=== PATIENT | female | born 1985 | race Caucasian/White ===

== ENCOUNTER 2017-11-04 21:46 | Emergency (ER) | payer SELFPAY, MEDICAID ==
[2017-11-05 00:47] LABS: BASO # 0.1 10^3/uL (0.0-0.2); BASO % 0.5 % (0.0-1.0); EOS # 0.3 10^3/uL (0.0-0.50); EOS % 2.7 % (0.0-3.0); HEMATOCRIT 40.9 % (36.0-47.0); HEMOGLOBIN 12.5 g/dl (12.0-15.5); IMMATURE GRANULOCYTE % 0.3 % (0-3.0); LYMPH # 3.1 10^3/uL (1.5-4.5); LYMPH % 28.4 % (24.0-44.0); MEAN CORPUSCULAR HEMOGLOBIN 24.6 pg (27.0-33.0); MEAN CORPUSCULAR HGB CONC 30.6 g/dl (32.0-36.5); MEAN CORPUSCULAR VOLUME 80.4 fl (80.0-96.0); MONO # 0.6 10^3/uL (0.0-0.8); MONO % 5.8 % (0.0-5.0); NEUTROPHILS # 6.9 10^3/uL (1.8-7.7); NEUTROPHILS % 62.3 % (36.0-66.0); PLATELET COUNT, AUTOMATED 374 10^3/uL (150-450); RED BLOOD COUNT 5.09 10^6/uL (4.00-5.40)
[2017-11-05 01:07] LABS: ANION GAP 6 MEQ/L (8-16); BLOOD UREA NITROGEN 14 MG/DL (7-18); C REACTIVE PROTEIN QUANTITATIV 1.18 MG/DL (0.00-0.30); CARBON DIOXIDE LEVEL 24 MEQ/L (21-32); CHLORIDE LEVEL 110 MEQ/L (98-107); CREATININE FOR GFR 0.77 MG/DL (0.55-1.30); GLOMERULAR FILTRATION RATE > 60.0 (>60); GLUCOSE, FASTING 86 MG/DL (70-100); POTASSIUM SERUM 4.1 MEQ/L (3.5-5.1); SODIUM LEVEL 140 MEQ/L (136-145)
[2017-11-05 01:12] LABS: ERYTHROCYTE SEDIMENTATION RATE 32 mm/hr (0-20)
[2017-11-05] MEDS: CLINDAMYCIN 900 MG in APPROPRIATE DILUENT 1 EA IV (01:14)
[2017-11-05] MEDS: KETOROLAC TROMETHAMINE 10 MG TAB PO (02:00)
== END 2017-11-05 02:05 | disposition home or self-care (01) ==
LOC: M ED 11-05 02:05
DX: L03.115 Cellulitis of right lower limb (principal); E66.9 Obesity, unspecified; F17.200 Nicotine dependence, unspecified, uncomplicated; Z87.81 Personal history of (healed) traumatic fracture; Z98.890 Other specified postprocedural states; Z96.9 Presence of functional implant, unspecified; Z88.8 Allergy status to other drugs, medicaments and biological substances; Z88.5 Allergy status to narcotic agent
CPT/HCPCS: 73700

== ENCOUNTER → 2018-10-15 | Outpatient (CLI) | payer OTHER ==
[~2018-10-15] MED LIST: BACL10TA2 PO; CLEO300C2 PO; CYCL10TA; DICL25TA PO; HYDR-3713 PO; MIRA3350 PO; MOBI15TA PO; PERCOCET PO; ROBA750T4 PO; TRIA37.53 PO; ZANA4CAP PO; [UNRECOGNIZED DRUG - REMARK] PO; zanaflex PO
--- NOTE | 2018-10-15 17:51 | REP ---
Digital diagnostic bilateral mammography with CAD, 3-D tomography, and focused left breast sonography: History: Left breast lump superiorly and medially. No comparison breast imaging. Findings: A skin marker is affixed to the skin at the site of the palpable lump and routine views of the left breast are augmented by magnified focal spot compression views. Bilateral 3-D tomography was carried out. The breast parenchyma is almost completely fat replaced. In the area of the palpable lump in the superior and medial quadrant of the left breast, there are two tight groupings of polymorphic calcifications close to one another. Just anterior to these two is a fat density rounded lesion with thin lay consistent with a area of fat necrosis or oil cyst. This measures 6 mm in diameter. The largest grouping of calcifications measures 7 mm in greatest diameter. A smaller grouping of calcifications appear dystrophic and coarse and benign. This measures 3 mm in greatest diameter. No other mammographic abnormality is seen. There is a cutaneous mole superiorly and laterally on the left breast. The right breast is unremarkable. It contains a few benign calcifications. Sonographic findings: The left breast was examined sonographically sitting and supine. At the site of the palpable lump there is an 8 x 8 x 4 mm irregular area containing shadowing calcifications which is felt to correspond with the larger calcification pattern. This casts posterior acoustic shadowing. There is a similar area of posterior shadowing nearby 2 mm in greatest diameter. Inferior to the palpable lump, there is a 6 mm rounded hypoechoic area with acoustic shadowing 10 cm from the nipple which is felt to correspond with a benign fat-containing cyst seen anterior to the calcifications in the left breast mammographically. This is felt to be a benign mammographic finding containing fat. Impression: There is a tight grouping of somewhat coarse but polymorphic calcifications in the left breast at the site of the palpable lump. This may be benign fat necrosis but in the absence of prior imaging and given its appearance, BIRADS category is felt to be best assigned as category 4 suspicious left breast imaging. Stereotactic needle biopsy of this larger group of calcifications is recommended. BIRADS 4: BI-RADS/ACR category 4 mammogram. Suspicious Abnormality - biopsy should be considered. This mammogram was interpreted with the aid of an FDA-approved computer-aided detection system. The patient states she had a clinical breast exam in September 2018. The patient letter being requested is m# [id number] . Electronically Signed by Santos Snider MD 10/15/2018 08:31 P
== END ==
LOC: M RAD 13:58
PROVIDERS: ATTEND Family Medicine
DX: Z12.31 Encounter for screening mammogram for malignant neoplasm of breast (principal); N63.20 Unspecified lump in the left breast, unspecified quadrant
CPT/HCPCS: 76642; 77066; G0279

== ENCOUNTER 2020-05-15 20:00 | Inpatient (IN) | payer OTHER ==
[~2020-05-15] VITALS: Ht 167.6 cm; Wt 46.6 kg
[~2020-05-15 20:00] MED LIST changes: +CYCL-707; -CYCL10TA
[2020-05-15] MEDS ORDERED: EPINEPHrine INJ 1 MG/ML 1ML AMP ONE (20:02)
[2020-05-15] MEDS ORDERED: MORPHINE 4 MG/ML 1ML VIAL/SYRINGE (J2270) IV ONE (20:30)
[2020-05-15] MEDS ORDERED: AMPICILLIN SOD/SULBACTAM SOD 3 GM in D5W MINI-BAG PLUS 100 ML IV ONE (20:30)
[2020-05-15] MEDS ORDERED: BOOSTRIX/ADACEL VACCINE (DIPHTH/PERTUSS/ACELL/TETANUS) 0.5ML SYR IM ONE (20:30)
[2020-05-15 21:02] LABS: BASO % 0.3 % (0.0-1.0); EOS # 0.3 10^3/uL (0.0-0.5); EOS % 2.4 % (0.0-3.0); HEMATOCRIT 41.5 % (36.0-47.0); HEMOGLOBIN 12.7 g/dl (12.0-15.5); LYMPH # 2.2 10^3/uL (1.5-5.0); LYMPH % 20.5 % (24.0-44.0); MEAN CORPUSCULAR HEMOGLOBIN 25.8 pg (27.0-33.0); MEAN CORPUSCULAR HGB CONC 30.6 g/dl (32.0-36.5); MEAN CORPUSCULAR VOLUME 84.2 fl (80.0-96.0); MONO # 0.6 10^3/uL (0.0-0.8); MONO % 5.2 % (0.0-5.0); NEUTROPHILS # 7.8 10^3/uL (1.5-8.5); NEUTROPHILS % 71.2 % (36.0-66.0); PLATELET COUNT, AUTOMATED 420 10^3/uL (150-450); RED BLOOD COUNT 4.93 10^6/uL (4.00-5.40); WHITE BLOOD COUNT 10.9 10^3/uL (4.0-10.0)
[2020-05-15 21:16] LABS: INR 0.96; PARTIAL THROMBOPLASTIN TIME 24.7 SECONDS (24.2-38.5)
--- NOTE | 2020-05-15 21:42 | REPVR ---
PROCEDURE INFORMATION: Exam: XR Left Forearm Exam date and time: 05/15/2020 9:31 PM Age: 35 years old Clinical indication: Pain; Lower or forearm; Left; Additional info: Dog bite TECHNIQUE: Imaging protocol: XR Left forearm. Views: 2 views. COMPARISON: CR Elbow, complete 11/18/2013 10:26 AM FINDINGS: Bones/joints: Bones are aligned normally. No fracture, bone lesion or osteochondral abnormality. Joint spaces of the elbow and wrist are maintained. Soft tissues: Diffuse soft tissue swelling and soft tissue air consistent with laceration which correlates with the patient's history. No opaque foreign body. IMPRESSION: 1. Soft tissue lacerations and soft tissue swelling of the mid forearm without underlying radiopaque foreign body 2. No fracture or other osseous abnormality. Electronically signed by: Hiram Pack On 05/15/2020 21:42:30 PM
--- NOTE | 2020-05-15 21:44 | REPVR ---
PROCEDURE INFORMATION: Exam: XR Left Elbow Exam date and time: 05/15/2020 9:31 PM Age: 35 years old Clinical indication: Pain; Lower or forearm; Left; Additional info: Dog bite TECHNIQUE: Imaging protocol: XR Left elbow. Views: 3 or more views. COMPARISON: CR Elbow, complete 11/18/2013 10:26 AM FINDINGS: Bones/joints : Lateral view shows no displacement of periarticular fat pads to indicate joint effusion. Bones are aligned normally. No fracture, bone lesion or osteochondral abnormality. Joint spaces of the elbow are well-maintained. Soft tissues: Soft tissue laceration of the proximal and mid forearm without involvement of the elbow joint. IMPRESSION: Normal radiographic series of the elbow. Proximal-mid forearm soft tissue injuries were discussed in the forearm radiograph report Electronically signed by: Hiram Pack On 05/15/2020 21:44:26 PM
--- NOTE | 2020-05-15 21:46 | REPVR ---
PROCEDURE INFORMATION: Exam: XR Left Wrist Exam date and time: 05/15/2020 9:31 PM Age: 35 years old Clinical indication: Pain; Wrist; Left; Additional info: Dog bite TECHNIQUE: Imaging protocol: XR Left wrist. Views: 3 or more views. COMPARISON: No relevant prior studies available. FINDINGS: Bones/joints: No acute fracture. Carpal bones align normally. No bone lesion. Scaphoid appears intact. Joint spaces are well-maintained for age. Soft tissues: Soft tissue swelling and soft tissue air over the distal forearm consistent with the history of dog bite. No retained foreign body. IMPRESSION: 1. Mid and distal forearm soft tissue injury with soft tissue air but no identifiable foreign body. 2. No osseous injury or malalignment. Electronically signed by: Hiram Pack On 05/15/2020 21:45:44 PM
[2020-05-15] MEDS ORDERED: D5W/0.45% SODIUM CHLORIDE 1,000 ML IV SCH (22:20)
[2020-05-15] MEDS ORDERED: GLUCOSE 4GM CHEW TABLET PO PRN (22:45)
[2020-05-15] MEDS ORDERED: GLUCAGON INJ 1MG VIAL SC PRN (22:45)
[2020-05-15] MEDS ORDERED: MORPHINE 4 MG/ML 1ML VIAL/SYRINGE (J2270) IV PRN (22:45)
[2020-05-15] MEDS ORDERED: DEXTROSE 50% 50 ML SYRINGE IV PRN (22:45)
[2020-05-15] MEDS ORDERED: RABIES VACCINE HUMAN 2.5 INTERNATIONAL UNITS/ML VIAL (90675) IM ONE (23:00)
[2020-05-15] MEDS ORDERED: RABIES IMMUNE GLOBULIN 1500 INTERNATIONAL UNIT/5ML VIAL (90375) IM ONE (23:00)
[2020-05-15] MEDS ORDERED: NICOTINE 14 MG/24 HR TRANSDERMAL TD ONE (23:00)
[2020-05-15] MEDS ORDERED: LEVALBUTEROL 1.25 MG/0.5 ML CONCENTRATE NEB INH PRN (23:00)
[2020-05-15] MEDS ORDERED: ceFAZolin 2 GM/D5W 50 ML IV BAG (J0690 PER 500MG) As Ordered ONE (23:03)
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
[2020-05-15 23:48] LABS: ERYTHROCYTE SEDIMENTATION RATE 38 mm/hr (0-20)
[2020-05-15] MEDS ORDERED: fentaNYL 100 MCG/2 ML INJECTION (J3010) As Ordered ONE (23:50)
[2020-05-15] MEDS ORDERED: MIDAZOLAM INJ 2MG/2ML VIAL (J2250 PER 1MG) As Ordered ONE (23:50)
[2020-05-16] MEDS ORDERED: LIDOCAINE 2% 100MG/5ML SDV (FOR ANES.) As Ordered ONE (00:05)
[2020-05-16] MEDS ORDERED: propofoL 500 MG/50 ML VIAL As Ordered ONE ×2 (00:05→00:57)
[2020-05-16] MEDS ORDERED: propofoL 200 MG/20 ML VIAL As Ordered ONE (00:05)
[2020-05-16] MEDS ORDERED: CHLOROPROCAINE PRES. FREE 2% 20ML VIAL As Ordered ONE (00:29)
[2020-05-16] MEDS ORDERED: fentaNYL 100 MCG/2 ML INJECTION (J3010) IV ONE ×2 (00:45)
[2020-05-16] MEDS ORDERED: MIDAZOLAM INJ 2MG/2ML VIAL (J2250 PER 1MG) IV ONE ×2 (00:45)
[2020-05-16] MEDS ORDERED: oxyCODONE 5MG TAB PO PRN (01:30)
[2020-05-16] MEDS ORDERED: METOCLOPRAMIDE INJ 10MG/2ML VIAL (J2765 PER 1) IV PRN (01:30)
[2020-05-16] MEDS ORDERED: LR 1,000 ML IV SCH ×2 (01:30→03:00)
[2020-05-16] MEDS ORDERED: MEPERIDINE INJ 25 MG/ML VIAL (J2175) IV PRN (01:30)
[2020-05-16] MEDS ORDERED: fentaNYL 100 MCG/2 ML INJECTION (J3010) IV PRN (01:30)
[2020-05-16] MEDS ORDERED: ONDANSETRON 4MG/2ML VIAL IV PRN ×2 (01:30→03:00)
[2020-05-16] MEDS ORDERED: PROMETHAZINE INJ 25 MG/ML VIAL (J2550) IV PRN (03:00)
[2020-05-16] MEDS ORDERED: traMADol 50 MG TAB PO PRN (03:00)
[2020-05-16] MEDS ORDERED: MORPHINE 4 MG/ML 1ML VIAL/SYRINGE (J2270) IV PRN (03:00)
[2020-05-16] MEDS ORDERED: MORPHINE 2 MG/ML 1ML VIAL (J2270) IV PRN (03:00)
[2020-05-16] MEDS ORDERED: ACETAMINOPHEN TAB 650MG DOSE (2X325MG) PO PRN (03:00)
[2020-05-16] MEDS: PERCOCET 5MG/325MG TAB PO PRN ×3 (04:10→18:22)
[2020-05-16] MEDS: AMPICILLIN SOD/SULBACTAM SOD 3 GM in D5W MINI-BAG PLUS 100 ML IV SCH ×4 (04:18→20:34)
[2020-05-16 07:12] LABS: BASO # 0.1 10^3/uL (0.0-0.2); BASO % 0.4 % (0.0-1.0); EOS % 0.3 % (0.0-3.0); HEMOGLOBIN 11.1 g/dl (12.0-15.5); LYMPH # 0.9 10^3/uL (1.5-5.0); LYMPH % 7.4 % (24.0-44.0); MEAN CORPUSCULAR HEMOGLOBIN 25.9 pg (27.0-33.0); MEAN CORPUSCULAR HGB CONC 30.8 g/dl (32.0-36.5); MEAN CORPUSCULAR VOLUME 84.1 fl (80.0-96.0); MONO # 0.7 10^3/uL (0.0-0.8); MONO % 5.7 % (0.0-5.0); NEUTROPHILS # 10.2 10^3/uL (1.5-8.5); NEUTROPHILS % 85.9 % (36.0-66.0); PLATELET COUNT, AUTOMATED 337 10^3/uL (150-450); RED BLOOD COUNT 4.28 10^6/uL (4.00-5.40); WHITE BLOOD COUNT 11.8 10^3/uL (4.0-10.0)
[2020-05-16 07:43] LABS: CHOLESTEROL RISK RATIO 3.116 (<5); THYROID STIMULATING HORMONE 0.874 uIU/ML (0.358-3.740); THYROXINE (T4) 9.2 UG/DL (4.5-12.0)
[2020-05-16 07:44] LABS: BLOOD UREA NITROGEN 8 MG/DL (7-18); C REACTIVE PROTEIN QUANTITATIV 1.72 MG/DL (0.00-0.30); CALCIUM LEVEL 8.2 MG/DL (8.5-10.1); CARBON DIOXIDE LEVEL 24 MEQ/L (21-32); CHLORIDE LEVEL 110 MEQ/L (98-107); CREATININE FOR GFR 0.78 MG/DL (0.55-1.30); GLOMERULAR FILTRATION RATE > 60.0 (>60); GLUCOSE, FASTING 102 MG/DL (70-100); POTASSIUM SERUM 3.8 MEQ/L (3.5-5.1); SODIUM LEVEL 141 MEQ/L (136-145)
[2020-05-16 07:59] LABS: ERYTHROCYTE SEDIMENTATION RATE 43 mm/hr (0-20)
[2020-05-16] MEDS: NICOTINE 14 MG/24 HR TRANSDERMAL TD SCH (08:07)
[2020-05-16] MEDS ORDERED: ceFAZolin SOD 2 GM in IV 1 EA IV SCH (09:00)
[2020-05-16 09:14] LABS: HEMOGLOBIN A1c 5.4 %
[2020-05-16 10:00] VITALS: BP 142/79
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
--- NOTE | 2020-05-16 13:34 | RO ---
DATE OF OPERATION: 05/16/2020 SURGEON: Arash Weiner MD CUSTOMER COMPLAINT CLERK: None. SUPERVISING ATTENDING: Arash Weiner MD PREOPERATIVE DIAGNOSIS: Left forearm dog bite with approximately 5 x 7 cm skin loss. POSTOPERATIVE DIAGNOSIS: Left forearm dog bite with approximately 5 x 7 cm skin loss. NAME OF OPERATION: Left forearm irrigation and debridement of skin loss and dog bite and internal degloving of the dorsal 5 x 7 cm lesion as well as two 3 cm lesions on the proximal ulnar aspect of the left forearm. FINDINGS: The patient had mild internal degloving with the aforementioned 5 x 7 cm dorsal left forearm skin lesion as well as two 3 cm proximal and ulnar dog bites. INDICATIONS: This is a 35-year-old female who was out enjoying her evening when a stray dog latched onto her left forearm. This patient had past medical history of obesity, possible hypertension, 25 year pack history of smoking, depression and right tibial osteomyelitis. The patient otherwise was healthy. After the dog bit her left forearm the patient was seen in the [facility] Emergency Department for further evaluation and treatment regarding her left forearm. Given the fact that she had internal degloving injury as well as large 5 x 7 cm skin defect on the dorsal aspect of her left forearm she is indicated for left forearm irrigation and debridement of the aforementioned injuries. ANESTHESIA: Local, MAC. INTRAOPERATIVE ANTIBIOTICS: 2 gm Ancef. TOURNIQUET TIME: None used. IMPLANTS: None. ESTIMATED BLOOD LOSS: 20 mL. CULTURES: None. SPECIMEN: None. PROCEDURE IN DETAIL: The patient was met in the preoperative holding area where the patients left upper extremity was signed. The patients consent was confirmed to be correct; patients identity was confirmed to be correct. She was transported to the operating theater where she was placed supine on regular surgical flat top bed. The left upper extremity was placed onto arm table; safety strap secured the patient to the bed. The lower extremities had SCDs placed. All bony prominences were well padded. Time out was called to confirm correct patient, correct operative extremity and correct consent. All staff was in agreement. The patient was draped in the usual sterile fashion exposing the left upper extremity. We began the procedure by debriding the necrotic edges of the dorsal laceration after debridement of the skin edges and debridement of the soft tissues including the fascia of the extensor tendons, likely the ECRB and extensor digitorum communis and any necrotic looking fat. We then began our copious irrigation using 9 liters of normal saline after copiously irrigating the dorsal 5 x 7 cm lesion. We then turned our attention to the proximal ulnar- sided lesions. There were two lesions measuring approximately 3 cm with internal degloving of the adipose layer from the fascia. I was not able to palpate bone; however, I was able to insert my finger approximately 3 inches into the distal aspect of the ulnar proximal lacerations. These were also thoroughly irrigated using 9 liters normal saline. Once we copiously irrigated both the dorsal larger skin lesion and the two proximal ulnar smaller skin lesions we then used 3-0 Vicryl to loosely approximate the edges of the aforementioned lesions. We covered the dorsal lesion which measured 5 x 7 after debridement of the skin tissue edges with white sponge and covered the two proximal ulnar incisions using black sponge. These were then hooked up to negative pressure wound dressing at 125 mmHg and connected to negative pressure wound therapy machine. We then covered this with an Srini bandage. The patient was awakened without complication and transported to postanesthesia care unit. The patient will be under the care of internal medicine team to manage her medical comorbidities. At this point in time we will continue the negative pressure wound therapy for three days. At that point in time we will return her for repeat irrigation and debridement. However, we will likely consult plastic surgery for split-thickness skin graft on the dorsal aspect of her left forearm. If this is the case then plastic surgery will perform the secondary procedure likely involving irrigation and debridement, possible split-thickness skin graft to the dorsal aspect if the tissues appear viable without any additional necrosis of the skin edges. The patient will receive her postoperative pain medication and antibiotics per the internal medicine recommendations. We will continue to follow this patient. LACY
--- NOTE | 2020-05-16 13:56 | CR ---
PREOPERATIVE DIAGNOSIS: Left forearm dog bite with skin loss on the dorsal aspect. HISTORY OF PRESENT ILLNESS: This is a 35-year-old female who was walking behind her home and a stray dog attacked her and bit the dorsal aspect of her left arm, as well as the ulnar aspect of her proximal forearm. She appeared to have a 3 x 3 cm skin deficit over the dorsal aspect of her forearm with exposed extensor muscle belly appreciated. She presented to the [facility] for further evaluation and treatment. On arrival, she received IV antibiotics and received a tetanus booster. The dog was a stray and the Public Health Department has been contacted. She will likely receive anti-rabies vaccination; however, this is still pending. The patient was evaluated by orthopedic surgery with the physical exam findings as described below. She was indicated for irrigation and debridement with negative pressure wound therapy dressing with probable split- thickness skin graft placement in a future suture. PAST MEDICAL HISTORY: * Obesity with a 46.2 BMI. * High glucose with possible prediabetes. * Patient did arrive with a blood pressure of 162/90 with questionable chronic hypertension. * Patient does have a 25-pack year smoking history. * Depression. * Right tibial osteomyelitis of which she has not received treatment in several years. PAST SURGICAL HISTORY: Self-reported bilateral oophorectomy. ALLERGIES: Patient denies. SOCIAL HISTORY: Patient denies alcohol or drug use. FAMILY HISTORY: Significant for cardiovascular disease and stroke history. MEDICATIONS: Patient has a previous history of Effexor SSRI medication use; however, she denies any current medications. PHYSICAL EXAMINATION: GENERAL: Patient was alert to person, time, and place. CARDIAC: Regular rate and rhythm. LUNGS: Clear to auscultation bilaterally. Equally rising chest bilaterally. MUSCULOSKELETAL: Patients left upper extremity had a 2+ ulnar and radial pulse. She had brisk cap refill under 2 seconds to the distal digits. She had 5/5 motor strength to the musculocutaneous, axillary, radial, and median nerve distributions. She had 4/5 strength to the ulnar musculature distribution. The patient was intact to light touch to the musculocutaneous, axillary, radial, median, and ulnar nerve distributions. She did describe some mild paresthesias to the ulnar nerve distribution of her left hand. The patient did have a 3 cm x 5 cm area of torn skin by the penetrated dog teeth. There appeared to be a soft tissue defect measuring 3 x 5 cm. She also healthy appearing a 2 x 2 cm soft tissue deficit along the ulnar aspect of the proximal forearm. The patient had full range of motion about her left hand, left wrist, left elbow, and shoulder. IMAGING: The patient did have a left wrist, left forearm, and left elbow radiograph, which demonstrated no osseous abnormalities. She did have what appeared to be some mild air overlying the dorsal aspect of her left forearm. IMPRESSION: This is a 35-year-old female with a soft tissue injury about the dorsal aspect of her proximal left forearm measuring 3 x 5 cm and a 2 x 2 cm soft tissue deficit about the ulnar aspect of the proximal forearm, who is otherwise neurovascularly intact with some mild paresthesias in the ulnar nerve distribution. PLAN: At this point in time given the soft tissue deficit and muscular disruption, she was indicated for irrigation and debridement with wound VAC and likely a split-thickness skin graft by orthopedics or a consult with plastic surgery for further evaluation and treatment. She will undergo the aforementioned surgery either on the radha of 05/15/2020 or the direct care specialist of 05/16/2020. Anesthesia was made aware of the aforementioned proceedings. Internal medicine will be the admitting service and orthopedics will be the consulting service. Further plans will follow the surgical dictation. LACY
[2020-05-16 14:00] VITALS: BP 147/78
[2020-05-16 18:00] VITALS: BP 137/82
[2020-05-16 22:00] VITALS: BP 151/68
[2020-05-17 02:00] VITALS: BP 151/81
[2020-05-17] MEDS: AMPICILLIN SOD/SULBACTAM SOD 3 GM in D5W MINI-BAG PLUS 100 ML IV SCH ×4 (03:55→21:17)
[2020-05-17 06:00] VITALS: BP 160/84
[2020-05-17] MEDS: NICOTINE 14 MG/24 HR TRANSDERMAL TD SCH (08:06)
[2020-05-17] MEDS ORDERED: INFLUENZA QUADRIVALENT PF VACCINE 0.5ML SYRINGE IM ONE (09:00)
[2020-05-17] MEDS: PERCOCET 5MG/325MG TAB PO PRN ×3 (09:43→22:12)
[2020-05-17 14:00] VITALS: BP 138/99
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
--- NOTE | 2020-05-17 17:21 | CR.PDOC ---
Plastic Surgery Consultation Date of Consultation 05/17/20 History and Physical CONSULT REPORT FOR: Orthopedic team REASON FOR CONSULTATION: Left forearm open wound HISTORY OF PRESENT ILLNESS: 35 y/o female s/p dog bite to left forearm on 05/15. Patient was taken to OR for a wash out and debridement of devitalized tissue. Now on the floor with wound vac and IV antibiotics. She is feeling well today. Able to move her left arm. Full use of the hand. Pain controlled with meds. PAST MEDICAL HISTORY: 1. Obesity, chronic osteomyelitis for Right leg injury. PAST SURGICAL HISTORY: INCLUDES: 1. Right ankle ORIF. PREVIOUS ANESTHESIA REACTIONS: denies ALLERGIES: Please see below. FAMILY HISTORY: non contributory. HOME MEDICATIONS: Please see below. REVIEW OF SYSTEMS: GENERAL: Denies chills, reports weight gain,. HEENT: Denies blurred vision and double vision. Denies ear symptoms. Denies hoarseness. NECK: Denies any neck pain]. CARDIOVASCULAR: Denies chest pain and palpitations. MUSCULOSKELETAL: Denies arthralgias, back pain and thrombophlebitis. SKIN: open wound. Infection right lower sim. NEUROLOGIC: Denies headache, stroke and transient ischemic attack. PSYCHIATRIC: Denies anxiety and depression. ENDOCRINE: Denies thyroid disease. HEMATOLOGY/ONCOLOGY: Denies bleeding or clotting disorder. HEART: Denies any chest pains, palpitations, paroxysmal dyspnea, orthopnea. PULMONARY: Denies chronic cough, dyspnea and wheezing. GASTROINTESTINAL: Denies rectal bleeding, family history of colon cancer, constipation, diarrhea, dysphagia, heartburn and jaundice. GENITOURINARY: Denies dysuria, frequency, hematuria and nocturia. ENDOCRINE: Denies polydipsia, polyphagia, polyuria, heat or cold intolerance. INFECTIOUS: Denies any recent upper respiratory tract infection, UTI, need for use of antibiotics. NUTRITION: Reports good appetite. PHYSICAL EXAMINATION: VITALS SIGNS: Please see below. GENERAL APPEARANCE:Patient seen, awake, alert, and oriented. Comfortable, in no acute distress. SKIN: Warm and moist. Left forearm with open wound s/p debridement 6x4.5cm, 0.5cm depth full thickness to the muscle. No muscle necrosis. Volar part of the forearm with small opening, partially closed s/p puncture wounds from teeth. Forearm with mild swelling. No redness. LUNGS: Clear to auscultation bilaterally. No wheezing appreciated. HEART: No chest wall abnormalities. Regular rate and rhythm with no murmurs appreciated. ABDOMEN: Abdomen is soft, non-tender, non-distended. . EXTREMITIES: Extremities have no deformities. No edema identified. No calf tenderness. LABORATORY DATA: Please see below. IMAGING STUDIES: no foreign body on x-ray IMPRESSION: Left forearm open wound s/p dog bite. PLANS: Continue with wound vac and IV antibiotics. Elevate arm. Reduce swelling. Plan for open wound closure with rotational flaps vs skin graft. Findings and plan discussed with patient. Will follow. Vital Signs Vital Signs Date Time Temp Pulse Resp B/P (MAP) Pulse Ox O2 Delivery O2 Flow Rate FiO2 05/17/20 14:00 98.0 83 17 138/99 (112) 95 Room Air 05/16/20 14:00 2.0 I&Os I&O- Last 24 Hours up to 6 AM 05/17/20 06:00 Intake Total 2060 ml Output Total 650 ml Balance 1410 ml Home Medications No Active Prescriptions or Reported Meds Allergies Coded Allergies: acetaminophen (Verified Adverse Reaction, Mild, ANGER, 05/15/20) codeine (Verified Adverse Reaction, Mild, ANGER, 05/15/20) LINK DELEON DO May 17, 2020 17:21
[2020-05-17 18:40] VITALS: BP 139/69
[2020-05-17 22:00] VITALS: BP 121/70
[2020-05-18] MEDS: AMPICILLIN SOD/SULBACTAM SOD 3 GM in D5W MINI-BAG PLUS 100 ML IV SCH ×4 (02:25→20:42)
[2020-05-18 06:00] VITALS: BP 123/73
[2020-05-18 06:59] LABS: HEMATOCRIT 34.1 % (36.0-47.0); HEMOGLOBIN 10.3 g/dl (12.0-15.5); MEAN CORPUSCULAR HEMOGLOBIN 25.7 pg (27.0-33.0); MEAN CORPUSCULAR HGB CONC 30.2 g/dl (32.0-36.5); PLATELET COUNT, AUTOMATED 278 10^3/uL (150-450); RED BLOOD COUNT 4.01 10^6/uL (4.00-5.40); WHITE BLOOD COUNT 6.5 10^3/uL (4.0-10.0)
[2020-05-18 07:28] LABS: ALBUMIN 2.5 GM/DL (3.2-5.2); ALT/SGPT 26 U/L (12-78); BILIRUBIN,TOTAL 0.4 MG/DL (0.2-1.0); BLOOD UREA NITROGEN 9 MG/DL (7-18); CALCIUM LEVEL 8.3 MG/DL (8.5-10.1); CARBON DIOXIDE LEVEL 26 MEQ/L (21-32); CHLORIDE LEVEL 109 MEQ/L (98-107); CREATININE FOR GFR 0.67 MG/DL (0.55-1.30); GLOMERULAR FILTRATION RATE > 60.0 (>60); GLUCOSE, FASTING 83 MG/DL (70-100); POTASSIUM SERUM 3.7 MEQ/L (3.5-5.1); SODIUM LEVEL 139 MEQ/L (136-145); TOTAL PROTEIN 6.7 GM/DL (6.4-8.2)
[2020-05-18] MEDS: NICOTINE 14 MG/24 HR TRANSDERMAL TD SCH (08:44)
[2020-05-18] MEDS ORDERED: RABIES VACCINE HUMAN 2.5 INTERNATIONAL UNITS/ML VIAL (90675) IM ONE (09:00)
[2020-05-18] MEDS: PERCOCET 5MG/325MG TAB PO PRN ×2 (10:20→17:28)
[2020-05-18 14:00] VITALS: BP 103/68
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
[2020-05-18 22:00] VITALS: BP 130/66
[2020-05-19] MEDS: AMPICILLIN SOD/SULBACTAM SOD 3 GM in D5W MINI-BAG PLUS 100 ML IV SCH ×4 (03:01→21:31)
[2020-05-19 06:00] VITALS: BP 99/55
[2020-05-19 06:02] LABS: HEMATOCRIT 32.2 % (36.0-47.0); HEMOGLOBIN 9.6 g/dl (12.0-15.5); MEAN CORPUSCULAR HEMOGLOBIN 25.5 pg (27.0-33.0); MEAN CORPUSCULAR HGB CONC 29.8 g/dl (32.0-36.5); MEAN CORPUSCULAR VOLUME 85.4 fl (80.0-96.0); PLATELET COUNT, AUTOMATED 266 10^3/uL (150-450); RED BLOOD COUNT 3.77 10^6/uL (4.00-5.40); WHITE BLOOD COUNT 5.8 10^3/uL (4.0-10.0)
[2020-05-19 06:23] LABS: ALBUMIN 2.6 GM/DL (3.2-5.2); ALT/SGPT 28 U/L (12-78); BILIRUBIN,TOTAL 0.3 MG/DL (0.2-1.0); BLOOD UREA NITROGEN 12 MG/DL (7-18); CALCIUM LEVEL 8.4 MG/DL (8.5-10.1); CARBON DIOXIDE LEVEL 26 MEQ/L (21-32); CHLORIDE LEVEL 108 MEQ/L (98-107); GLOMERULAR FILTRATION RATE > 60.0 (>60); GLUCOSE, FASTING 93 MG/DL (70-100); POTASSIUM SERUM 4.2 MEQ/L (3.5-5.1); SODIUM LEVEL 140 MEQ/L (136-145); TOTAL PROTEIN 6.4 GM/DL (6.4-8.2)
[2020-05-19] MEDS: NICOTINE 14 MG/24 HR TRANSDERMAL TD SCH (08:59)
[2020-05-19] MEDS: PERCOCET 5MG/325MG TAB PO PRN ×2 (09:33→16:28)
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
--- NOTE | 2020-05-19 14:48 | IPNPDOC ---
Subjective General Date Seen: May 19, 2020 Subject Chief Complaint/History The patient is a 35-year-old female admitted with a reason for visit of Ope Wound Of L Forearm Due To Dog Bite. Wound checked today. Left dorsal forearm with bulging muscle. Wound is clean. Clear drainage. Arm swollen. Makes full fist. All fingers flexion/extension intact. Current Medications Current Medications Current Medications Medications (Trade) Dose Ordered Sig/Jessica Route PRN Reason Start Time Stop Time Status Last Admin Dose Admin Acetaminophen (Tylenol Tab) 650 mg Q4HP PRN PO TEMP AND PAIN LEVEL 1-4 05/16/20 03:00 Ampicillin Sodium/ Sulbactam Sodium 3 gm/Dextrose 100 ml @ 200 mls/hr Q6H IV 05/16/20 03:00 05/19/20 08:43 Cefazolin Sodium/ Dextrose 2 gm/IV Miscellaneous Supplies 50 ml @ 75 mls/hr Q8H IV 05/16/20 09:00 05/16/20 04:56 DC Dextrose (Dextrose 50%) 25 ml ASDIRECTED PRN IV SEE LABEL COMMENTS 05/15/20 22:45 Dextrose/Sodium Chloride 1,000 ml @ 100 mls/hr Q10H IV 05/15/20 22:20 05/16/20 02:57 DC Fentanyl Citrate (Sublimaze) 25 mcg Q5MP PRN IV PAIN LEVEL 5-10 05/16/20 01:30 05/16/20 03:00 DC Glucagon (Glucagon) 1 mg ASDIRECTED PRN SC SEE LABEL COMMENTS 05/15/20 22:45 Glucose (Glucose) 16 GM ASDIRECTED PRN PO SEE LABEL COMMENTS 05/15/20 22:45 Home Med (Med Rec Complete!) ASDIRECTED XX 05/15/20 22:15 UNV Lactated Ringer's 1,000 ml @ 50 mls/hr Q20H IV 05/16/20 03:00 05/16/20 10:09 DC 05/16/20 05:14 Lactated Ringer's 1,000 ml @ 100 mls/hr Q10H IV 05/16/20 01:30 05/16/20 03:00 DC Levalbuterol HCl (Xopenex Neb) 1.25 mg Q4HP PRN INH SOB/WHEEZING 05/15/20 23:00 Meperidine HCl (Demerol) 12.5 mg Q5MP PRN IV SHIVERING 05/16/20 01:30 05/16/20 03:00 DC Metoclopramide HCl (REGLAN INJection) 10 mg Q6HP PRN IV NAUSEA OR VOMITING 05/16/20 01:30 05/16/20 03:00 DC Morphine Sulfate (Morphine Sulfate Inj) 1 mg Q2H PRN IV PAIN LEVEL 5-7 05/19/20 15:00 Morphine Sulfate (Morphine Sulfate Inj) 2 mg Q2H PRN IV PAIN LEVEL 5-7 05/16/20 03:00 05/19/20 13:38 DC Morphine Sulfate (Morphine Sulfate Inj) 3 mg Q2H PRN IV PAIN LEVEL 8-10 05/16/20 03:00 05/19/20 13:39 DC Morphine Sulfate (Morphine Sulfate Inj) 4 mg Q2HP PRN IV SEVERE PAIN (PS 8-10) 05/15/20 22:45 05/16/20 02:57 DC Nicotine (Nicoderm Cq 14mg) 1 patch DAILY TD 05/16/20 09:00 Ondansetron HCl (ZOFRAN INJection) 4 mg Q4HP PRN IV NAUSEA OR VOMITING 05/16/20 01:30 05/16/20 03:00 DC Ondansetron HCl (ZOFRAN INJection) 4 mg Q6H PRN IV NAUSEA 05/16/20 03:00 05/16/20 04:07 Oxycodone HCl (Roxicodone, Oxyir) 5 mg ASDIRECTED PRN PO PAIN LEVEL 1-4 05/16/20 01:30 05/16/20 03:00 DC Oxycodone/ Acetaminophen (Percocet 5mg/ 325mg Tablet) 1 tab Q6H PRN PO PAIN LEVEL 5-7 05/16/20 03:00 05/18/20 17:28 Oxycodone/ Acetaminophen (Percocet 5mg/ 325mg Tablet) 2 tab Q6H PRN PO PAIN LEVEL 8-10 05/16/20 03:00 05/19/20 09:33 Promethazine HCl (PHENERGAN INJection) 12.5 mg Q6H PRN IV NAUSEA 05/16/20 03:00 Tramadol HCl (Ultram) 50 mg Q6H PRN PO SEE LABEL COMMENTS 05/16/20 03:00 05/19/20 13:51 Allergies Coded Allergies: acetaminophen (Verified Adverse Reaction, Mild, ANGER, 05/15/20) codeine (Verified Adverse Reaction, Mild, ANGER, 05/15/20) Objective Physical Examination Examination GENERAL APPEARANCE:Patient seen, laying in bed, awake, alert, and oriented. Comfortable, in no acute distress. SKIN: Warm and moist. Right forearm with full thickness open wound, swollen muscle. Volar forearm with healing smaller incisions. LUNGS: Clear to auscultation bilaterally. No wheezing appreciated. HEART: No chest wall abnormalities. Regular rate and rhythm with no murmurs appreciated. Vital Signs Vital Signs Date Time Temp Pulse Resp B/P (MAP) Pulse Ox O2 Delivery O2 Flow Rate FiO2 05/19/20 14:21 18 05/19/20 06:00 98.5 71 99/55 (70) 97 Room Air 05/16/20 14:00 2.0 I&Os I&O- Last 24 Hours up to 6 AM 05/19/20 06:00 Intake Total 3440 ml Output Total 1050 ml Balance 2390 ml Laboratory Data Labs 24H Laboratory Tests 2 05/19/20 05:35: Nucleated Red Blood Cells % (auto) 0.0, Anion Gap 6L, Glomerular Filtration Rate > 60.0, Calcium Level 8.4L, Total Bilirubin 0.3, Aspartate Amino Transf (AST/ SGOT) 17, Alanine Aminotransferase (ALT/SGPT) 28, Alkaline Phosphatase 78, Total Protein 6.4, Albumin 2.6L, Albumin/Globulin Ratio 0.7L CBC/BMP Laboratory Tests 05/19/20 05:35 Impression Left dorsal forearm dog bite wound. Continue with wound vac to reduce swelling, Continue with IV antibiotics Plan to close wound with direct closure and with possible skin graft Plan / VTE VTE Prophylaxis Ordered?: Yes LINK DELEON DO May 19, 2020 14:48
[2020-05-19] MEDS ORDERED: MORPHINE 2 MG/ML 1ML VIAL (J2270) IV PRN (15:00)
[2020-05-19 15:02] VITALS: BP 111/69
[2020-05-19 20:57] VITALS: BP 110/65
[2020-05-20] MEDS: AMPICILLIN SOD/SULBACTAM SOD 3 GM in D5W MINI-BAG PLUS 100 ML IV SCH ×4 (03:17→20:21)
[2020-05-20 07:00] LABS: HEMATOCRIT 33.2 % (36.0-47.0); HEMOGLOBIN 9.7 g/dl (12.0-15.5); MEAN CORPUSCULAR HEMOGLOBIN 25.2 pg (27.0-33.0); MEAN CORPUSCULAR HGB CONC 29.2 g/dl (32.0-36.5); MEAN CORPUSCULAR VOLUME 86.2 fl (80.0-96.0); PLATELET COUNT, AUTOMATED 288 10^3/uL (150-450); RED BLOOD COUNT 3.85 10^6/uL (4.00-5.40); WHITE BLOOD COUNT 5.6 10^3/uL (4.0-10.0)
[2020-05-20 07:04] VITALS: BP 110/65
[2020-05-20 07:20] LABS: ALBUMIN 2.4 GM/DL (3.2-5.2); ALT/SGPT 25 U/L (12-78); BILIRUBIN,TOTAL 0.2 MG/DL (0.2-1.0); BLOOD UREA NITROGEN 13 MG/DL (7-18); CALCIUM LEVEL 8.2 MG/DL (8.5-10.1); CARBON DIOXIDE LEVEL 25 MEQ/L (21-32); CHLORIDE LEVEL 109 MEQ/L (98-107); CREATININE FOR GFR 0.72 MG/DL (0.55-1.30); GLOMERULAR FILTRATION RATE > 60.0 (>60); GLUCOSE, FASTING 82 MG/DL (70-100); POTASSIUM SERUM 4.1 MEQ/L (3.5-5.1); SODIUM LEVEL 140 MEQ/L (136-145); TOTAL PROTEIN 6.6 GM/DL (6.4-8.2)
[2020-05-20] MEDS: NICOTINE 14 MG/24 HR TRANSDERMAL TD SCH (09:00)
[2020-05-20] MEDS: PERCOCET 5MG/325MG TAB PO PRN ×2 (09:28→20:20)
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
[2020-05-20 14:00] VITALS: BP 110/67
[2020-05-20 22:00] VITALS: BP 120/70
[2020-05-21] MEDS: AMPICILLIN SOD/SULBACTAM SOD 3 GM in D5W MINI-BAG PLUS 100 ML IV SCH ×4 (02:25→20:51)
[2020-05-21 06:00] VITALS: BP 99/57
[2020-05-21 06:26] LABS: HEMATOCRIT 30.9 % (36.0-47.0); HEMOGLOBIN 9.1 g/dl (12.0-15.5); MEAN CORPUSCULAR HEMOGLOBIN 25.1 pg (27.0-33.0); MEAN CORPUSCULAR HGB CONC 29.4 g/dl (32.0-36.5); MEAN CORPUSCULAR VOLUME 85.1 fl (80.0-96.0); PLATELET COUNT, AUTOMATED 260 10^3/uL (150-450); RED BLOOD COUNT 3.63 10^6/uL (4.00-5.40); WHITE BLOOD COUNT 5.3 10^3/uL (4.0-10.0)
[2020-05-21 06:54] LABS: ALBUMIN 2.5 GM/DL (3.2-5.2); ALT/SGPT 32 U/L (12-78); BILIRUBIN,TOTAL 0.3 MG/DL (0.2-1.0); BLOOD UREA NITROGEN 12 MG/DL (7-18); CALCIUM LEVEL 8.4 MG/DL (8.5-10.1); CARBON DIOXIDE LEVEL 27 MEQ/L (21-32); CHLORIDE LEVEL 108 MEQ/L (98-107); GLOMERULAR FILTRATION RATE > 60.0 (>60); GLUCOSE, FASTING 82 MG/DL (70-100); POTASSIUM SERUM 4.2 MEQ/L (3.5-5.1); SODIUM LEVEL 140 MEQ/L (136-145); TOTAL PROTEIN 6.2 GM/DL (6.4-8.2)
[2020-05-21] MEDS ORDERED: PERCOCET 5MG/325MG TAB PO ONE (08:30)
[2020-05-21] MEDS ORDERED: NS 1,000 ML IV ONE (09:00)
[2020-05-21] MEDS: NICOTINE 14 MG/24 HR TRANSDERMAL TD SCH (09:00)
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
[2020-05-21 14:00] VITALS: BP 121/70
[2020-05-21] MEDS: PERCOCET 5MG/325MG TAB PO PRN (15:54)
[2020-05-21 22:00] VITALS: BP 123/88
[2020-05-22] MEDS: PERCOCET 5MG/325MG TAB PO PRN ×3 (00:25→21:26)
[2020-05-22] MEDS: AMPICILLIN SOD/SULBACTAM SOD 3 GM in D5W MINI-BAG PLUS 100 ML IV SCH ×4 (03:31→21:26)
[2020-05-22 06:00] VITALS: BP 108/69
[2020-05-22 06:24] LABS: HEMATOCRIT 31.5 % (36.0-47.0); HEMOGLOBIN 9.2 g/dl (12.0-15.5); MEAN CORPUSCULAR HEMOGLOBIN 25.1 pg (27.0-33.0); MEAN CORPUSCULAR HGB CONC 29.2 g/dl (32.0-36.5); MEAN CORPUSCULAR VOLUME 86.1 fl (80.0-96.0); PLATELET COUNT, AUTOMATED 288 10^3/uL (150-450); RED BLOOD COUNT 3.66 10^6/uL (4.00-5.40); WHITE BLOOD COUNT 6.1 10^3/uL (4.0-10.0)
[2020-05-22 06:46] LABS: ALBUMIN 2.6 GM/DL (3.2-5.2); ALT/SGPT 30 U/L (12-78); BILIRUBIN,TOTAL 0.3 MG/DL (0.2-1.0); BLOOD UREA NITROGEN 13 MG/DL (7-18); CARBON DIOXIDE LEVEL 26 MEQ/L (21-32); CHLORIDE LEVEL 111 MEQ/L (98-107); CREATININE FOR GFR 0.76 MG/DL (0.55-1.30); GLOMERULAR FILTRATION RATE > 60.0 (>60); GLUCOSE, FASTING 88 MG/DL (70-100); POTASSIUM SERUM 4.4 MEQ/L (3.5-5.1); SODIUM LEVEL 141 MEQ/L (136-145); TOTAL PROTEIN 6.3 GM/DL (6.4-8.2)
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
[2020-05-22] MEDS: NICOTINE 14 MG/24 HR TRANSDERMAL TD SCH (08:22)
[2020-05-22 14:45] VITALS: BP 119/70
[2020-05-22 22:00] VITALS: BP 121/66
[2020-05-23] MEDS: AMPICILLIN SOD/SULBACTAM SOD 3 GM in D5W MINI-BAG PLUS 100 ML IV SCH ×4 (03:37→20:30)
[2020-05-23 06:00] VITALS: BP 98/50
[2020-05-23] MEDS ORDERED: NS 1,000 ML IV ONE (07:15)
[2020-05-23 07:21] LABS: HEMATOCRIT 33.5 % (36.0-47.0); HEMOGLOBIN 10.1 g/dl (12.0-15.5); MEAN CORPUSCULAR HEMOGLOBIN 25.7 pg (27.0-33.0); MEAN CORPUSCULAR HGB CONC 30.1 g/dl (32.0-36.5); MEAN CORPUSCULAR VOLUME 85.2 fl (80.0-96.0); PLATELET COUNT, AUTOMATED 291 10^3/uL (150-450); RED BLOOD COUNT 3.93 10^6/uL (4.00-5.40); WHITE BLOOD COUNT 7.2 10^3/uL (4.0-10.0)
[2020-05-23 07:46] LABS: ALBUMIN 2.8 GM/DL (3.2-5.2); ALT/SGPT 32 U/L (12-78); BILIRUBIN,TOTAL 0.3 MG/DL (0.2-1.0); BLOOD UREA NITROGEN 10 MG/DL (7-18); CALCIUM LEVEL 8.4 MG/DL (8.5-10.1); CARBON DIOXIDE LEVEL 27 MEQ/L (21-32); CHLORIDE LEVEL 109 MEQ/L (98-107); CREATININE FOR GFR 0.74 MG/DL (0.55-1.30); GLOMERULAR FILTRATION RATE > 60.0 (>60); GLUCOSE, FASTING 78 MG/DL (70-100); POTASSIUM SERUM 4.3 MEQ/L (3.5-5.1); SODIUM LEVEL 142 MEQ/L (136-145); TOTAL PROTEIN 6.7 GM/DL (6.4-8.2)
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
[2020-05-23] MEDS ORDERED: PERCOCET 5MG/325MG TAB PO ONE ×2 (08:00→17:15)
[2020-05-23] MEDS: NICOTINE 14 MG/24 HR TRANSDERMAL TD SCH (09:00)
--- NOTE | 2020-05-23 17:25 | IPNPDOC ---
Subjective General Date Seen: May 23, 2020 Subject Chief Complaint/History The patient is a 35-year-old female admitted with a reason for visit of Ope Wound Of L Forearm Due To Dog Bite. Patient is here for left forearm open wound. Doing well with wound vac changes. No fever, chills. Current Medications Current Medications Current Medications Medications (Trade) Dose Ordered Sig/Jessica Route PRN Reason Start Time Stop Time Status Last Admin Dose Admin Acetaminophen (Tylenol Tab) 650 mg Q4HP PRN PO TEMP AND PAIN LEVEL 1-4 05/16/20 03:00 Ampicillin Sodium/ Sulbactam Sodium 3 gm/Dextrose 100 ml @ 200 mls/hr Q6H IV 05/16/20 03:00 05/23/20 16:29 Cefazolin Sodium/ Dextrose 2 gm/IV Miscellaneous Supplies 50 ml @ 75 mls/hr Q8H IV 05/16/20 09:00 05/16/20 04:56 DC Dextrose (Dextrose 50%) 25 ml ASDIRECTED PRN IV SEE LABEL COMMENTS 05/15/20 22:45 Dextrose/Sodium Chloride 1,000 ml @ 100 mls/hr Q10H IV 05/15/20 22:20 05/16/20 02:57 DC Fentanyl Citrate (Sublimaze) 25 mcg Q5MP PRN IV PAIN LEVEL 5-10 05/16/20 01:30 05/16/20 03:00 DC Glucagon (Glucagon) 1 mg ASDIRECTED PRN SC SEE LABEL COMMENTS 05/15/20 22:45 Glucose (Glucose) 16 GM ASDIRECTED PRN PO SEE LABEL COMMENTS 05/15/20 22:45 Home Med (Med Rec Complete!) ASDIRECTED XX 05/15/20 22:15 UNV Lactated Ringer's 1,000 ml @ 50 mls/hr Q20H IV 05/16/20 03:00 05/16/20 10:09 DC 05/16/20 05:14 Lactated Ringer's 1,000 ml @ 100 mls/hr Q10H IV 05/16/20 01:30 05/16/20 03:00 DC Levalbuterol HCl (Xopenex Neb) 1.25 mg Q4HP PRN INH SOB/WHEEZING 05/15/20 23:00 Meperidine HCl (Demerol) 12.5 mg Q5MP PRN IV SHIVERING 05/16/20 01:30 05/16/20 03:00 DC Metoclopramide HCl (REGLAN INJection) 10 mg Q6HP PRN IV NAUSEA OR VOMITING 05/16/20 01:30 05/16/20 03:00 DC Morphine Sulfate (Morphine Sulfate Inj) 1 mg Q2H PRN IV PAIN LEVEL 5-7 05/19/20 15:00 Morphine Sulfate (Morphine Sulfate Inj) 2 mg Q2H PRN IV PAIN LEVEL 5-7 05/16/20 03:00 05/19/20 13:38 DC Morphine Sulfate (Morphine Sulfate Inj) 3 mg Q2H PRN IV PAIN LEVEL 8-10 05/16/20 03:00 05/19/20 13:39 DC Morphine Sulfate (Morphine Sulfate Inj) 4 mg Q2HP PRN IV SEVERE PAIN (PS 8-10) 05/15/20 22:45 05/16/20 02:57 DC Nicotine (Nicoderm Cq 14mg) 1 patch DAILY TD 05/16/20 09:00 Ondansetron HCl (ZOFRAN INJection) 4 mg Q4HP PRN IV NAUSEA OR VOMITING 05/16/20 01:30 05/16/20 03:00 DC Ondansetron HCl (ZOFRAN INJection) 4 mg Q6H PRN IV NAUSEA 05/16/20 03:00 05/16/20 04:07 Oxycodone HCl (Roxicodone, Oxyir) 5 mg ASDIRECTED PRN PO PAIN LEVEL 1-4 05/16/20 01:30 05/16/20 03:00 DC Oxycodone/ Acetaminophen (Percocet 5mg/ 325mg Tablet) 1 tab Q6H PRN PO PAIN LEVEL 5-7 05/16/20 03:00 05/23/20 02:59 DC 05/22/20 21:26 Oxycodone/ Acetaminophen (Percocet 5mg/ 325mg Tablet) 2 tab Q6H PRN PO PAIN LEVEL 8-10 05/16/20 03:00 05/23/20 02:59 DC 05/20/20 20:20 Promethazine HCl (PHENERGAN INJection) 12.5 mg Q6H PRN IV NAUSEA 05/16/20 03:00 Tramadol HCl (Ultram) 50 mg Q6H PRN PO SEE LABEL COMMENTS 05/16/20 03:00 05/23/20 02:59 DC 05/19/20 13:51 Allergies Coded Allergies: acetaminophen (Verified Adverse Reaction, Mild, ANGER, 05/15/20) codeine (Verified Adverse Reaction, Mild, ANGER, 05/15/20) Objective Physical Examination Examination GENERAL APPEARANCE:Patient seen, laying in bed, awake, alert, and oriented. Comfortable, in no acute distress. SKIN: Warm and moist. Left dorsal forearm with open wound, granulated well. Depth flash with skin level. Swelling much improved. LUNGS: Clear to auscultation bilaterally. No wheezing appreciated. HEART: No chest wall abnormalities. Regular rate and rhythm with no murmurs appreciated. ABDOMEN: Abdomen is soft, non-tender, non-distended. EXTREMITIES: No edema identified. No calf tenderness. Vital Signs Vital Signs Date Time Temp Pulse Resp B/P (MAP) Pulse Ox O2 Delivery O2 Flow Rate FiO2 05/23/20 10:27 16 05/23/20 06:00 98.2 76 98/50 (66) 95 Room Air I&Os I&O- Last 24 Hours up to 6 AM 05/23/20 06:00 Intake Total 2790 ml Output Total 2350 ml Balance 440 ml Laboratory Data Labs 24H Laboratory Tests 2 05/23/20 06:52: Nucleated Red Blood Cells % (auto) 0.0, Anion Gap 6L, Glomerular Filtration Rate > 60.0, Calcium Level 8.4L, Total Bilirubin 0.3, Aspartate Amino Transf (AST/SGOT) 20, Alanine Aminotransferase (ALT/SGPT) 32, Alkaline Phosphatase 82, Total Protein 6.7, Albumin 2.8L, Albumin/Globulin Ratio 0.7L CBC/BMP Laboratory Tests 05/23/20 06:52 Impression Left forearm open wound s/p dog bite. Patient is ready for closure of the wound with skin graft. Surgery planning explained to the patient today. She is ready to proceed. Plant for OR tomorrow. NPO after midnight. Donor site right thigh. Continue with antibiotics. Plan / VTE VTE Prophylaxis Ordered?: Yes LINK DELEON DO May 23, 2020 17:25
[2020-05-23 22:00] VITALS: BP 112/62
[2020-05-24] VITALS (7 sets, daily range): BP systolic 119–141; BP diastolic 65–75
[2020-05-24] MEDS: AMPICILLIN SOD/SULBACTAM SOD 3 GM in D5W MINI-BAG PLUS 100 ML IV SCH ×4 (02:37→20:31)
[2020-05-24 07:34] LABS: HEMATOCRIT 32.7 % (36.0-47.0); HEMOGLOBIN 9.5 g/dl (12.0-15.5); MEAN CORPUSCULAR HEMOGLOBIN 24.7 pg (27.0-33.0); MEAN CORPUSCULAR HGB CONC 29.1 g/dl (32.0-36.5); MEAN CORPUSCULAR VOLUME 85.2 fl (80.0-96.0); PLATELET COUNT, AUTOMATED 282 10^3/uL (150-450); RED BLOOD COUNT 3.84 10^6/uL (4.00-5.40); WHITE BLOOD COUNT 7.1 10^3/uL (4.0-10.0)
[2020-05-24 08:06] LABS: ALBUMIN 2.7 GM/DL (3.2-5.2); ALT/SGPT 31 U/L (12-78); BILIRUBIN,TOTAL 0.3 MG/DL (0.2-1.0); BLOOD UREA NITROGEN 15 MG/DL (7-18); CALCIUM LEVEL 8.7 MG/DL (8.5-10.1); CARBON DIOXIDE LEVEL 27 MEQ/L (21-32); CHLORIDE LEVEL 109 MEQ/L (98-107); CREATININE FOR GFR 0.78 MG/DL (0.55-1.30); GLOMERULAR FILTRATION RATE > 60.0 (>60); GLUCOSE, FASTING 84 MG/DL (70-100); POTASSIUM SERUM 4.4 MEQ/L (3.5-5.1); SODIUM LEVEL 141 MEQ/L (136-145); TOTAL PROTEIN 6.7 GM/DL (6.4-8.2)
[2020-05-24] MEDS ORDERED: PERCOCET 5MG/325MG TAB PO ONE (08:30)
[2020-05-24] MEDS: NICOTINE 14 MG/24 HR TRANSDERMAL TD SCH (08:49)
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
[2020-05-24] MEDS ORDERED: D5W/0.45% SODIUM CHLORIDE 1,000 ML IV SCH (11:00)
[2020-05-24] MEDS ORDERED: ONDANSETRON 4MG/2ML VIAL As Ordered ONE ×2 (12:14→15:08)
[2020-05-24] MEDS ORDERED: dexameTHASONE 4 MG/ML 1ML VIAL (J1100 PER 1MG) As Ordered ONE (12:14)
[2020-05-24] MEDS ORDERED: LIDOCAINE 2% 100MG/5ML SDV (FOR ANES.) As Ordered ONE (12:14)
[2020-05-24] MEDS ORDERED: propofoL 200 MG/20 ML VIAL As Ordered ONE ×2 (12:14→13:50)
[2020-05-24] MEDS ORDERED: MIDAZOLAM INJ 2MG/2ML VIAL (J2250 PER 1MG) As Ordered ONE (12:14)
[2020-05-24] MEDS ORDERED: fentaNYL 100 MCG/2 ML INJECTION (J3010) As Ordered ONE ×2 (12:14→15:24)
[2020-05-24] MEDS ORDERED: LIDOCAINE 2% W/EPINEPHRINE 20ML VIAL **PRES FREE As Ordered ONE (13:38)
[2020-05-24] MEDS ORDERED: BACITRACIN OINTMENT 30GM TUBE As Ordered ONE (13:39)
[2020-05-24] MEDS ORDERED: BACITRACIN PWD 50,000 UNITS VIAL As Ordered ONE (13:39)
[2020-05-24] MEDS ORDERED: ROCURONIUM BROMIDE 50 MG/5 ML VIAL As Ordered ONE (13:44)
[2020-05-24] MEDS ORDERED: EPINEPHrine INJ 1 MG/ML 1ML AMP As Ordered ONE (13:51)
[2020-05-24] MEDS ORDERED: SUGAMMADEX SODIUM 500 MG/5 ML VIAL (BRIDION) As Ordered ONE (15:05)
[2020-05-24] MEDS ORDERED: ACETAMINOPHEN 1000MG 100ML IV BTL (OFIRMEV) (J0131 PER 10MG) As Ordered ONE (15:05)
[2020-05-24] MEDS ORDERED: METOCLOPRAMIDE INJ 10MG/2ML VIAL (J2765 PER 1) As Ordered ONE (15:05)
[2020-05-24] MEDS ORDERED: LIDOCAINE W/EPINEPHRINE 1% 20ML VIAL As Ordered ONE (15:17)
--- NOTE | 2020-05-24 15:57 | POST-OPPD ---
Postoperative Procedure Note Date Of Procedure: May 24, 2020 PREOPERATIVE DIAGNOSIS: left forearm open wound POSTOPERATIVE DIAGNOSIS: same FINDINGS: open wound left forearm 4.5x6.5cm PROCEDURE: Irrigation, debridement dog bite open wound left forearm with closure with split thickness skin graft. SURGEON: Dr Deleon AGRONOMY SUPERVISOR: Dr Cox ANESTHESIA: General SPECIMENS: debrided tissue, culture ESTIMATED BLOOD LOSS: 5 cc REPLACED: none DRAINS: none COMPLICATIONS: none POSTOPERATIVE CONDITION: stable [id number] LINK DELEON DO May 24, 2020 15:57
[2020-05-24] MEDS ORDERED: METOCLOPRAMIDE INJ 10MG/2ML VIAL (J2765 PER 1) IV PRN (16:15)
[2020-05-24] MEDS ORDERED: PERCOCET 5MG/325MG TAB PO PRN (16:15)
[2020-05-24] MEDS ORDERED: LR 1,000 ML IV SCH (16:15)
[2020-05-24] MEDS ORDERED: ONDANSETRON 4MG/2ML VIAL IV PRN (16:15)
[2020-05-24] MEDS ORDERED: fentaNYL 100 MCG/2 ML INJECTION (J3010) IV PRN (16:15)
[2020-05-25 01:30] VITALS: BP 121/63
[2020-05-25] MEDS: AMPICILLIN SOD/SULBACTAM SOD 3 GM in D5W MINI-BAG PLUS 100 ML IV SCH ×2 (02:31→08:15)
[2020-05-25 06:00] VITALS: BP 133/69
[2020-05-25] MEDS ORDERED: AUGM875T28 PO (07:38)
[2020-05-25] MEDS ORDERED: NICO14PA TD (07:38)
[2020-05-25] MEDS ORDERED: OXYC1TAB23 PO (07:38)
[2020-05-25] MEDS: NICOTINE 14 MG/24 HR TRANSDERMAL TD SCH (08:06)
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
--- NOTE | 2020-05-25 10:23 | IPNPDOC ---
Subjective General Date Seen: May 25, 2020 Subject Chief Complaint/History The patient is a 35-year-old female admitted with a reason for visit of Ope Wound Of L Forearm Due To Dog Bite. Patient s/p wash out and STSG to left forearm. Doing well this morning. Pain controlled. Current Medications Current Medications Current Medications Medications (Trade) Dose Ordered Sig/Jessica Route PRN Reason Start Time Stop Time Status Last Admin Dose Admin Acetaminophen (Tylenol Tab) 650 mg Q4HP PRN PO TEMP AND PAIN LEVEL 1-4 05/16/20 03:00 05/24/20 20:50 Ampicillin Sodium/ Sulbactam Sodium 3 gm/Dextrose 100 ml @ 200 mls/hr Q6H IV 05/16/20 03:00 05/25/20 08:15 Cefazolin Sodium/ Dextrose 2 gm/IV Miscellaneous Supplies 50 ml @ 75 mls/hr Q8H IV 05/16/20 09:00 05/16/20 04:56 DC Dextrose (Dextrose 50%) 25 ml ASDIRECTED PRN IV SEE LABEL COMMENTS 05/15/20 22:45 Dextrose/Sodium Chloride 1,000 ml @ 75 mls/hr [id number] IV 05/24/20 11:00 05/24/20 18:13 DC 05/24/20 11:54 Dextrose/Sodium Chloride 1,000 ml @ 100 mls/hr Q10H IV 05/15/20 22:20 05/16/20 02:57 DC Fentanyl Citrate (Sublimaze) 25 mcg Q5MP PRN IV PAIN LEVEL 5-10 05/16/20 01:30 05/16/20 03:00 DC Fentanyl Citrate (Sublimaze) 25 mcg Q5MP PRN IV PAIN LEVEL 5-10 05/24/20 16:15 05/24/20 17:15 DC Glucagon (Glucagon) 1 mg ASDIRECTED PRN SC SEE LABEL COMMENTS 05/15/20 22:45 Glucose (Glucose) 16 GM ASDIRECTED PRN PO SEE LABEL COMMENTS 05/15/20 22:45 Home Med (Med Rec Complete!) ASDIRECTED XX 05/15/20 22:15 UNV Lactated Ringer's 1,000 ml @ 50 mls/hr Q20H IV 05/16/20 03:00 05/16/20 10:09 DC 05/16/20 05:14 Lactated Ringer's 1,000 ml @ 100 mls/hr Q10H IV 05/16/20 01:30 05/16/20 03:00 DC Lactated Ringer's 1,000 ml @ 100 mls/hr Q10H IV 05/24/20 16:15 05/24/20 17:15 DC Levalbuterol HCl (Xopenex Neb) 1.25 mg Q4HP PRN INH SOB/WHEEZING 05/15/20 23:00 Meperidine HCl (Demerol) 12.5 mg Q5MP PRN IV SHIVERING 05/16/20 01:30 05/16/20 03:00 DC Metoclopramide HCl (REGLAN INJection) 10 mg Q6HP PRN IV NAUSEA OR VOMITING 05/16/20 01:30 05/16/20 03:00 DC Metoclopramide HCl (REGLAN INJection) 10 mg Q6HP PRN IV NAUSEA OR VOMITING 05/24/20 16:15 05/24/20 17:15 DC Morphine Sulfate (Morphine Sulfate Inj) 1 mg Q2H PRN IV PAIN LEVEL 5-7 05/19/20 15:00 05/24/20 21:39 Morphine Sulfate (Morphine Sulfate Inj) 2 mg Q2H PRN IV PAIN LEVEL 5-7 05/16/20 03:00 05/19/20 13:38 DC Morphine Sulfate (Morphine Sulfate Inj) 3 mg Q2H PRN IV PAIN LEVEL 8-10 05/16/20 03:00 05/19/20 13:39 DC Morphine Sulfate (Morphine Sulfate Inj) 4 mg Q2HP PRN IV SEVERE PAIN (PS 8-10) 05/15/20 22:45 05/16/20 02:57 DC Nicotine (Nicoderm Cq 14mg) 1 patch DAILY TD 05/16/20 09:00 Ondansetron HCl (ZOFRAN INJection) 4 mg Q4HP PRN IV NAUSEA OR VOMITING 05/16/20 01:30 05/16/20 03:00 DC Ondansetron HCl (ZOFRAN INJection) 4 mg Q4HP PRN IV NAUSEA OR VOMITING 05/24/20 16:15 05/24/20 17:15 DC Ondansetron HCl (ZOFRAN INJection) 4 mg Q6H PRN IV NAUSEA 05/16/20 03:00 05/16/20 04:07 Oxycodone HCl (Roxicodone, Oxyir) 5 mg ASDIRECTED PRN PO PAIN LEVEL 1-4 05/16/20 01:30 05/16/20 03:00 DC Oxycodone/ Acetaminophen (Percocet 5mg/ 325mg Tablet) 1 tab ASDIRECTED PRN PO PAIN LEVEL 1-4 05/24/20 16:15 05/24/20 17:15 DC Oxycodone/ Acetaminophen (Percocet 5mg/ 325mg Tablet) 1 tab Q6H PRN PO PAIN LEVEL 5-7 05/16/20 03:00 05/23/20 02:59 DC 05/22/20 21:26 Oxycodone/ Acetaminophen (Percocet 5mg/ 325mg Tablet) 2 tab Q6H PRN PO PAIN LEVEL 8-10 05/16/20 03:00 05/23/20 02:59 DC 05/20/20 20:20 Promethazine HCl (PHENERGAN INJection) 12.5 mg Q6H PRN IV NAUSEA 05/16/20 03:00 Tramadol HCl (Ultram) 50 mg Q6H PRN PO SEE LABEL COMMENTS 05/16/20 03:00 05/23/20 02:59 DC 05/19/20 13:51 Allergies Coded Allergies: acetaminophen (Verified Adverse Reaction, Mild, ANGER, 05/15/20) codeine (Verified Adverse Reaction, Mild, ANGER, 05/15/20) Objective Physical Examination Examination GENERAL APPEARANCE:Patient seen, laying in bed, awake, alert, and oriented. Comfortable, in no acute distress. SKIN: Warm and moist. Left arm in splint, fingers warm, moving well. Donor site Right anterior thigh, normal serous oozing. No redness. LUNGS: Clear to auscultation bilaterally. No wheezing appreciated.No chest wall abnormalities. HEART: Regular rate and rhythm. ABDOMEN: Abdomen is soft, non-tender, non-distended. EXTREMITIES: No edema identified. No calf tenderness. Vital Signs Vital Signs Date Time Temp Pulse Resp B/P (MAP) Pulse Ox O2 Delivery O2 Flow Rate FiO2 05/25/20 06:00 97.6 87 18 133/69 (90) 99 Room Air 05/24/20 16:08 3 I&Os I&O- Last 24 Hours up to 6 AM 05/25/20 05:59 Intake Total 875 ml Output Total 1505 ml Balance -630 ml Laboratory Data Labs 24H Laboratory Tests 2 05/24/20 11:50: Bedside Glucose (Misc Panel) 70 Microbiology Microbiology 05/24/20 Gram Stain - Final, Resulted 05/24/20 Wound Culture, Resulted Pending Impression Stable for discharge. Plant for patient to remove outer dressing, leave Xeroform attached to donor site, and allow it to dry. Recipient site : left arm, in dressing. Do not remove, do not wet. Patient to follow up with Plastic surgery on Saturday05/02/20, call office on Saturday to confirm appointment please. [phone] Discharge on Augmentin until dressings removed. Findings discussed with patient and primary team. Plan / VTE VTE Prophylaxis Ordered?: Yes LINK DELEON DO May 25, 2020 10:23
--- NOTE | 2020-05-25 12:25 | RO ---
DATE OF OPERATION: 05/24/2020 PREOPERATIVE DIAGNOSIS: Left forearm open wound, status post dog bite. POSTOPERATIVE DIAGNOSIS: Left forearm open wound, status post dog bite. PROCEDURE: Irrigation and debridement of dog bite open wound left forearm with closure with split-thickness skin graft. ATTENDING SURGEON: Araceli Fowler DO, [facility] NURSE: Dr. Cox ANESTHESIA: General. SPECIMEN: Debrided tissue and culture. BLOOD LOSS: 5 mL, no replacement. DRAINS: None. COMPLICATIONS: None. INDICATIONS: This is a 35-year-old female who was bitten by a dog on her left forearm. She has deficit of the skin measuring 4.5 x 6.5 cm. She was treated conservatively for the past several days with the wound VAC to reduce the swelling and get the wound ready for graft acceptance and now she is ready to proceed. Informed consent was obtained today, donor site to be right side, anterior thigh. DESCRIPTION OF PROCEDURE: Informed consent was confirmed. She was brought into the operating room and placed in the supine position. Preoperative antibiotics had been given; sequentials were placed on the lower calves. General anesthesia was induced. She was prepped and draped in usual sterile fashion. We started out procedure by irrigation and debridement of the wound and it was measured as 4.5 x 6.5 cm. Edges were freshened up, debrided tissue sent for pathology and also for culture. The wound was irrigated with Bacitracin irrigation solution. We then took the split-thickness skin graft using dermatome 1/20561 of an inch and it was meshed 1:1.5. The graft was introduced to recipient side and was sutured in place with 4-0 Monocryl sutures and a couple of christy in the middle to ensure that it is non-mobile. Epinephrine soaked sponge was placed on the donor site and then also 1% Lidocaine with Epinephrine was infiltrated to the donor site. We then used 3-0 nylon sutures for stay sutures around the recipient site and bolster dressing was placed and secured with nylon sutures. Also the volar portion of the bite was reevaluated and cleaned and a couple of extra nylon sutures were placed to approximate that laceration and Xeroform was applied on that as well. We also placed a bulky dressing and volar splint. For the donor site there is Xeroform, 4 x 4s and Op-Site dressing and compression dressing. The patient was extubated in the operating room without any difficulty and transferred to the recovery room in stable condition. LACY
== END 2020-05-25 13:00 | disposition home health service (06) | DRG 361 ==
LOC: M ED 20:00 → M MSPAV 20:01 → M ED INP 20:01 → M MSPAV 05-16 02:36 → INTOOBSV 05-16 14:04 → OBSVTOIN 05-16 14:04 → M MS5PR 05-17 18:35
PROVIDERS: ADMIT General Practice; ATTEND General Practice
PROC: 0LD60ZZ Extraction of Left Lower Arm and Wrist Tendon, Open Approach (ICD-10-PCS; 2020-05-16)
PROC: 0HREX74 Replacement of Left Lower Arm Skin with Autologous Tissue Substitute, Partial Thickness, External Approach (ICD-10-PCS; principal; 2020-05-24 15:00)
DX: S51.852A Open bite of left forearm, initial encounter (principal); Z68.42 Body mass index [BMI] 45.0-49.9, adult; E66.01 Morbid (severe) obesity due to excess calories; W54.0XXA Bitten by dog, initial encounter; Y92.038 Other place in apartment as the place of occurrence of the external cause; Y93.01 Activity, walking, marching and hiking; Y99.8 Other external cause status; R73.03 Prediabetes; G47.33 Obstructive sleep apnea (adult) (pediatric); F17.200 Nicotine dependence, unspecified, uncomplicated; Z88.5 Allergy status to narcotic agent; Z88.6 Allergy status to analgesic agent; S51.812A Laceration without foreign body of left forearm, initial encounter; S51.832A Puncture wound without foreign body of left forearm, initial encounter; I10 Essential (primary) hypertension; F32.9 Major depressive disorder, single episode, unspecified

== ENCOUNTER 2023-09-08 16:04 | Emergency (ER) | payer OTHER ==
[~2023-09-08 16:04] MED LIST changes: +AUGM875T28 PO; -DICL25TA PO; +DICL25TA11 PO; +NICO14PA TD; +OXYC1TAB23 PO; -TRIA37.53 PO; +TRIA37.577 PO
[2023-09-08 19:07] VITALS: BP 138/78; TEMP 98.8; O2SAT 98
== END 2023-09-08 19:11 | disposition home or self-care (01) ==
LOC: EDBD 16:04 → M ED 16:04
DX: S09.90XA Unspecified injury of head, initial encounter (principal); Y04.2XXA Assault by strike against or bumped into by another person, initial encounter; Y92.9 Unspecified place or not applicable; Y93.9 Activity, unspecified; Y99.9 Unspecified external cause status; Z88.8 Allergy status to other drugs, medicaments and biological substances; Z79.2 Long term (current) use of antibiotics; Z79.899 Other long term (current) drug therapy

== ENCOUNTER 2023-10-08 16:07 | Emergency (ER) | payer OTHER ==
[~2023-10-08] VITALS: Ht 167.6 cm; Wt 139.6 kg
[2023-10-08 18:08] LABS: BASO # 0.1 10^3/uL (0.0-0.2); BASO % 0.4 % (0.0-1.0); EOS # 0.4 10^3/uL (0.0-0.5); EOS % 3.8 % (0.0-3.0); HEMOGLOBIN 11.9 g/dl (12.0-15.5); LYMPH # 3.1 10^3/uL (1.5-5.0); LYMPH % 26.8 % (24.0-44.0); MEAN CORPUSCULAR HEMOGLOBIN 26.7 pg (27.0-33.0); MEAN CORPUSCULAR HGB CONC 31.3 g/dl (32.0-36.5); MEAN CORPUSCULAR VOLUME 85.2 fl (80.0-96.0); MONO # 0.7 10^3/uL (0.0-0.8); MONO % 5.7 % (2.0-8.0); NEUTROPHILS # 7.3 10^3/uL (1.5-8.5); PLATELET COUNT, AUTOMATED 372 10^3/uL (150-450); RED BLOOD COUNT 4.46 10^6/uL (4.00-5.40); WHITE BLOOD COUNT 11.6 10^3/uL (4.0-10.0)
[2023-10-08 18:15] LABS: HCG, SERUM QUALITATIVE NEGATIVE (NEGATIVE)
[2023-10-08 18:17] LABS: BLOOD UREA NITROGEN 12 MG/DL (9-23); CALCIUM LEVEL 8.7 MG/DL (8.5-10.1); CARBON DIOXIDE LEVEL 27 MMOL/L (20-31); CHLORIDE LEVEL 107 MMOL/L (98-107); CREATININE FOR GFR 0.57 MG/DL (0.55-1.30); GLOMERULAR FILTRATION RATE > 60.0 (>58); GLUCOSE, FASTING 91 MG/DL (60-100); SODIUM LEVEL 140 MMOL/L (136-145)
[2023-10-08 19:12] LABS: ERYTHROCYTE SEDIMENTATION RATE 51 mm/hr (0-20)
[2023-10-08] MEDS ORDERED: BACT800T5 PO (23:41)
[2023-10-08] MEDS: BACTRIM 160MG/800MG DS TAB PO ONE (23:44)
[2023-10-09] VITALS: BP 144/81; TEMP 97.9; O2SAT 98
== END 2023-10-09 00:06 | disposition home or self-care (01) ==
LOC: EEVIPCON 16:07 → M ED 16:07
DX: L03.115 Cellulitis of right lower limb (principal); L98.499 Non-pressure chronic ulcer of skin of other sites with unspecified severity; F17.210 Nicotine dependence, cigarettes, uncomplicated; Z88.8 Allergy status to other drugs, medicaments and biological substances; Z79.899 Other long term (current) drug therapy

== ENCOUNTER 2024-08-08 10:11 | Observation (INO) | payer OTHER ==
[~2024-08-08] VITALS: Ht 167.6 cm; Wt 122.7 kg
[~2024-08-08 10:11] MED LIST changes: +BACT800T5 PO
[2024-08-08] MEDS: ONDANSETRON 4MG 2ML VIAL IV ONE (12:19)
[2024-08-08] MEDS: MORPHINE 4 MG/ML 1ML VIAL IV ONE (12:20)
[2024-08-08 12:27] LABS: BASO % 0.4 % (0.0-1.0); EOS # 0.4 10^3/uL (0.0-0.5); EOS % 4.1 % (0.0-3.0); HEMATOCRIT 44.8 % (36.0-47.0); HEMOGLOBIN 13.6 g/dl (12.0-15.5); LYMPH # 1.5 10^3/uL (1.5-5.0); LYMPH % 15.8 % (24.0-44.0); MEAN CORPUSCULAR HEMOGLOBIN 26.8 pg (27.0-33.0); MEAN CORPUSCULAR HGB CONC 30.4 g/dl (32.0-36.5); MEAN CORPUSCULAR VOLUME 88.2 fl (80.0-96.0); MONO # 0.5 10^3/uL (0.0-0.8); NEUTROPHILS # 7.1 10^3/uL (1.5-8.5); NEUTROPHILS % 74.4 % (36.0-66.0); PLATELET COUNT, AUTOMATED 341 10^3/uL (150-450); RED BLOOD COUNT 5.08 10^6/uL (4.00-5.40); WHITE BLOOD COUNT 9.5 10^3/uL (4.0-10.0)
[2024-08-08] MEDS ORDERED: ACET-910 PO (12:44)
[2024-08-08] MEDS ORDERED: HOME MED LIST COMPLETE! XX SCH (12:45)
[2024-08-08 12:49] LABS: BLOOD UREA NITROGEN 13 MG/DL (9-23); CALCIUM LEVEL 8.7 MG/DL (8.5-10.1); CARBON DIOXIDE LEVEL 24 MMOL/L (20-31); CHLORIDE LEVEL 110 MMOL/L (98-107); CREATININE FOR GFR 0.53 MG/DL (0.55-1.30); GLOMERULAR FILTRATION RATE > 60.0 (>58); GLUCOSE, FASTING 89 MG/DL (60-100); POTASSIUM SERUM 4.2 MMOL/L (3.5-5.1); SODIUM LEVEL 144 MMOL/L (136-145)
[2024-08-08 13:14] LABS: HCG, SERUM QUALITATIVE NEGATIVE (NEGATIVE)
[2024-08-08] MEDS ORDERED: ACETAMINOPHEN 325 MG TAB PO PRN (14:20)
[2024-08-08] MEDS ORDERED: MOM 30ML SUSPENSION UDC PO PRN (14:20)
[2024-08-08] MEDS: DOCUSATE SODIUM 100MG CAPSULE PO SCH (14:45)
[2024-08-08 15:10] VITALS: BP 116/66; TEMP 97.9; O2SAT 96
[2024-08-08] MEDS: KETOROLAC 30 MG/ML 1ML VIAL IV SCH (15:18)
[2024-08-08 20:45] VITALS: BP 117/65; TEMP 98.1; O2SAT 98
[2024-08-09] VITALS (9 sets, daily range): BP systolic 114–129; BP diastolic 54–68; TEMP 97.5–98.1; O2SAT 89–99
[2024-08-09] MEDS: ceFAZolin SODIUM 3 GM VIAL As Ordered ONE (08:38)
[2024-08-09] MEDS ORDERED: fentaNYL 100 MCG/2 ML INJECTION As Ordered ONE (08:59)
[2024-08-09] MEDS ORDERED: propofoL 200 MG/20 ML VIAL As Ordered ONE (08:59)
[2024-08-09] MEDS ORDERED: MIDAZOLAM INJ 2MG/2ML VIAL As Ordered ONE (08:59)
[2024-08-09] MEDS ORDERED: dexmedeTOMIDine (4MCG/ML)200MCG/50ML BTL (PRECEDEX) As Ordered ONE (08:59)
[2024-08-09] MEDS ORDERED: ACETAMINOPHEN 1000MG/100ML IV BAG As Ordered ONE (08:59)
[2024-08-09] MEDS ORDERED: METOCLOPRAMIDE INJ 10MG/2ML VIAL As Ordered ONE (08:59)
[2024-08-09] MEDS ORDERED: SUGAMMADEX SODIUM 500 MG/5 ML VIAL (BRIDION) As Ordered ONE (08:59)
[2024-08-09] MEDS ORDERED: KETOROLAC 60MG 2ML VIAL As Ordered ONE (08:59)
[2024-08-09] MEDS ORDERED: ONDANSETRON 4MG 2ML VIAL As Ordered ONE (08:59)
[2024-08-09] MEDS ORDERED: ROCURONIUM BROMIDE 50MG/5ML VIAL As Ordered ONE (08:59)
[2024-08-09] MEDS ORDERED: LIDOCAINE 2% 100MG/5ML SDV (FOR ANES.) As Ordered ONE (08:59)
[2024-08-09] MEDS ORDERED: ALBUTEROL 6.7GM INHALER **FOR ANES. CART/OMNICELL ONLY As Ordered ONE (09:49)
[2024-08-09] MEDS ORDERED: PHENYLephrine 500MCG 5ML (100MCG/ML) SYRINGE As Ordered ONE (09:58)
[2024-08-09] MEDS ORDERED: DESFLURANE 240 ML INHALANT As Ordered ONE (10:23)
[2024-08-09] MEDS ORDERED: CALCIUM CHLORIDE 10% 1 GM/10 ML SYR As Ordered ONE (10:34)
[2024-08-09] MEDS: KETOROLAC 30 MG/ML 1ML VIAL IV PRN (12:26)
[2024-08-09] MEDS: traMADol 50 MG TAB PO PRN (13:36)
[2024-08-10 04:00] VITALS: BP 127/62; TEMP 97.9; O2SAT 95
[2024-08-10 08:00] VITALS: BP 120/60; TEMP 97.9; O2SAT 94
[2024-08-10 12:00] VITALS: BP 126/61; TEMP 98.2; O2SAT 98
[2024-08-10] MEDS ORDERED: IBUP-1114 PO (13:15)
[2024-08-10] MEDS ORDERED: ACET500P3 PO (13:15)
[2024-08-10] MEDS ORDERED: TRAM50TA2 PO (13:15)
[2024-08-10] MEDS ORDERED: ASPI81CH33 PO (13:15)
== END 2024-08-10 16:30 | disposition home or self-care (01) ==
LOC: M ED 10:11 → EEVIPCON 10:12 → M ED INP 10:12 → M MS5PR 15:10
PROVIDERS: ADMIT Student in an Organized Health Care Education/Training Program; ATTEND Student in an Organized Health Care Education/Training Program
DX: S82.041A Displaced comminuted fracture of right patella, initial encounter for closed fracture (principal); W00.0XXA Fall on same level due to ice and snow, initial encounter; Y92.481 Parking lot as the place of occurrence of the external cause; Y93.01 Activity, walking, marching and hiking; Y99.9 Unspecified external cause status; E66.813 Obesity, class 3; Z87.81 Personal history of (healed) traumatic fracture; Z59.00 Homelessness unspecified; Z88.5 Allergy status to narcotic agent
CPT/HCPCS: 27524; 36415; 73552; 73564; 73590; 76000; 80048; 84703; 85025; 85652; 86140; 86850; 86900; 86901; 96374; 96375; 96376; 97116; 97161; 97165; 97530; 97535; 99285; C1713; J0131; J0665; J0690; J1100; J1885; J2250; J2371; J2405; J2765; J3010

== ENCOUNTER → 2024-08-20 | Outpatient (CLI) | payer OTHER ==
[~2024-08-20] MED LIST changes: +ACET-910 PO; +ACET500P3 PO; +ASPI81CH33 PO; +IBUP-1114 PO; +TRAM50TA2 PO
== END ==
LOC: M SOG 07:51
PROVIDERS: ATTEND Physician Assistant
DX: S82.001A Unspecified fracture of right patella, initial encounter for closed fracture (principal); W18.30XA Fall on same level, unspecified, initial encounter; Y92.009 Unspecified place in unspecified non-institutional (private) residence as the place of occurrence of the external cause

== ENCOUNTER 2024-09-16 13:00 | Outpatient (RCR) | payer OTHER | END 2024-09-28 | LOC: M PT 13:00 | PROVIDERS: ATTEND Physician Assistant | DX: S82.401D Unspecified fracture of shaft of right fibula, subsequent encounter for closed fracture with routine healing (principal) ==

== ENCOUNTER → 2024-09-16 | Outpatient (CLI) | payer OTHER | LOC: M SOG 07:51 | PROVIDERS: ATTEND Orthopaedic Surgery | DX: S82.001A Unspecified fracture of right patella, initial encounter for closed fracture (principal); W18.30XA Fall on same level, unspecified, initial encounter; Y92.009 Unspecified place in unspecified non-institutional (private) residence as the place of occurrence of the external cause ==